=== PATIENT | female | born 1935 ===

== ENCOUNTER 2016-12-04 20:09 | Emergency (ER) | payer MEDICARE, MEDICAID ==
[2016-12-04 20:10] VITALS: BMI 23.4
--- NOTE | 2016-12-04 20:31 | C.PDOC ---
History Of Present Illness Patient presents to the ER with a complaint of redness to her scalp and ear swelling worsening since yesterday. Patient reports having her hair dyed yesterday. Patient is speaking in complete sentences and tolerating her own secretions. Denies fever, chills, nausea, or vomiting. Time Seen by Provider: 12/04/16 20:31 Chief Complaint (Nursing): Allergic Reaction History Per: Patient History/Exam Limitations: no limitations Onset/Duration Of Symptoms: Days (Since yesterday) Current Symptoms Are (Timing): Still Present Context: Other (Hair dye) Possible Cause: Other (Hair dye) Associated Symptoms: Swelling (Ears), Redness (Scalp) Home/EMS Treatment: None Severity: None Pain Scale Rating Of: 0 Recent travel outside of the [place]: No Past Medical History Reviewed: Historical Data, Nursing Documentation, Vital Signs Vital Signs: Last Vital Signs Temp 97.6 F 12/04/16 22:04 Pulse 60 12/04/16 22:04 Resp 16 12/04/16 22:04 BP 185/79 H 12/04/16 22:04 Pulse Ox 100 12/04/16 22:04 - Medical History PMH: Deep Vein Thrombosis, HTN - [facility] Procedures ANGIOPLASTY OF OTHER NON-CORONARY VESSEL(S) (03/24/13) INSEJ [id number] PERIPHERAL NON-CORONARY VES STENT(S) (03/24/13) INSERTION OF ONE VASCULAR STENT (03/24/13) PROCEDURE ON SINGLE VESSEL (03/24/13) Family History: States: No Known Family Hx - Social History Hx Tobacco Use: Yes Hx Alcohol Use: No Hx Substance Use: No - Immunization History Hx Tetanus Toxoid Vaccination: No Hx Influenza Vaccination: No Hx Pneumococcal Vaccination: No Review Of Systems Constitutional: Negative for: Fever, Chills ENT: Positive for: Other (Swelling to ears) Gastrointestinal: Negative for: Nausea, Vomiting Skin: Positive for: Other (Redness to scalp) Physical Exam - Physical Exam Appears: Well, Non-toxic Skin: Warm, Dry Head: Other (Erythemous scalp) Ear(s): Bilateral: Other (External swelling, redness) Oral Mucosa: Moist Chest: Symmetrical, No Tenderness Cardiovascular: Rhythm Regular, No Murmur Respiratory: Normal Breath Sounds, No Rales, No Rhonchi, No Wheezing Gastrointestinal/Abdominal: Soft, No Tenderness Neurological/Psych: Oriented x3 ED Course And Treatment O2 Sat by Pulse Oximetry: 98 (Room air) Pulse Ox Interpretation: Normal Progress Note: Benadryl, pepcid, solu-medrol, and IV fluids administered. Reevaluation Time: 22:44 Reassessment Condition: Improved Medical Decision Making Medical Decision Making: Upon provider reevaluation patient is feeling better, is medically stable, and requires no further treatment in the ED at this time. Patient will be discharged home with Rx for prednisone. Please also use benadryl ,pepcid and claritin . Counseling was provided and all questions were answered regarding diagnosis and need for follow up with Dr beard. There is agreement to discharge plan. Return if symptoms persist or worsen. Disposition Counseled Patient/Family Regarding: Studies Performed, Diagnosis, Need For Followup, Rx Given - Disposition Referrals: Hellen Rasheed MD [Medical Doctor] - Disposition: HOME/ ROUTINE Disposition Time: 20:31 Condition: FAIR Additional Instructions: Please return if symptoms recur. Please also use benadryl, pepcid and claritin Prescriptions: Prednisone [Deltasone] 20 mg PO DAILY #5 tablet Instructions: General Allergic Reaction (ED) Print Language: [place] - Clinical Impression Clinical Impression: Allergic reaction to chemical substance - Scribe Statement The provider has reviewed the documentation as recorded by the Scribotf Kang All medical record entries made by the Nasibotf were at my direction and personally dictated by me. I have reviewed the chart and agree that the record accurately reflects my personal performance of the history, physical exam, medical decision making, and the department course for this patient. I have also personally directed, reviewed, and agree with the discharge instructions and disposition.
[2016-12-04] MEDS ORDERED: DiphenhydrAMINE 50 mg/ml Inj IVP STA (20:37)
[2016-12-04] MEDS ORDERED: DiphenhydrAMINE 50 mg/ml Inj ONE (20:38)
[2016-12-04] MEDS ORDERED: Sodium Chloride 0.9% 1,000 ML IV ONE (20:38)
[2016-12-04] MEDS ORDERED: Sodium Chloride 0.9% 1,000 ML ONE (20:43)
[2016-12-04 22:05] VITALS: TEMP 97.6
[2016-12-04 22:47] VITALS: O2SAT 98
[2016-12-04 23:08] VITALS: BP 168/79; PULSE 79; RESP 18
== END 2016-12-04 23:08 | disposition home or self-care (01) ==
LOC: C.ER 20:09
DX: T78.49XA Other allergy, initial encounter (principal)
CPT/HCPCS: 96374; 96375; 99284; J1200; J2930; J7040

== ENCOUNTER 2017-11-10 13:21 | Emergency (ER) | payer MEDICARE, MEDICAID ==
[2017-11-10 13:21] VITALS: BMI 23.4
--- NOTE | 2017-11-10 16:21 | C.PDOC ---
History Of Present Illness 82 year old female presents to the ED c/o lower back pain. Patient reports she fell from a step stool and hit her back and head. Patient is currently c/o lower back pain, bruising and swelling to her left hand and wrist. Patient denies LOC, weakness, numbness, saddle anesthesia, urinary/bowel incontinence. Time Seen by Provider: 11/10/17 14:22 Chief Complaint (Nursing): Back Pain History Per: Patient History/Exam Limitations: no limitations Onset/Duration Of Symptoms: Hrs Current Symptoms Are (Timing): Still Present Quality Of Discomfort: "Pain" Previous Symptoms: None Associated Symptoms: None Recent travel outside of the [place]: No Additional History Per: Patient Past Medical History Reviewed: Historical Data, Nursing Documentation, Vital Signs Vital Signs: Last Vital Signs Temp 98.6 F 11/10/17 18:50 Pulse 65 11/10/17 18:50 Resp 18 11/10/17 18:50 BP 167/85 H 11/10/17 18:50 Pulse Ox 100 11/10/17 21:28 - Medical History PMH: Deep Vein Thrombosis, HTN Surgical History: No Surg Hx - [facility] Procedures ANGIOPLASTY OF OTHER NON-CORONARY VESSEL(S) (03/24/13) INSEJ [id number] PERIPHERAL NON-CORONARY VES STENT(S) (03/24/13) INSERTION OF ONE VASCULAR STENT (03/24/13) PROCEDURE ON SINGLE VESSEL (03/24/13) Family History: States: Unknown Family Hx - Social History Hx Tobacco Use: Yes Hx Alcohol Use: No Hx Substance Use: No - Immunization History Hx Tetanus Toxoid Vaccination: No Hx Influenza Vaccination: No Hx Pneumococcal Vaccination: No Review Of Systems Constitutional: Negative for: Fever, Chills Cardiovascular: Negative for: Chest Pain Respiratory: Negative for: Shortness of Breath Gastrointestinal: Negative for: Abdominal Pain Musculoskeletal: Positive for: Back Pain Skin: Negative for: Rash Neurological: Positive for: Headache. Negative for: Dizziness Physical Exam - Physical Exam Appears: Non-toxic, No Acute Distress Skin: Normal Color, Warm, Dry Head: Atraumatic, Normacephalic Eye(s): bilateral: Normal Inspection, PERRL, EOMI Nose: No Discharge Oral Mucosa: Moist Neck: Normal ROM, No Midline Cervical Tenderness, Supple Back: Other (lower back tenderness) Extremity: Normal ROM, No Tenderness, Capillary Refill (< 2 seconds), Swelling ( left hand and wrist), Other (bruising noted to left hand and wrist) Pulses: Left Radial: Normal, Right Radial: Normal Neurological/Psych: Oriented x3, Normal Motor, Normal Sensation Gait: Steady ED Course And Treatment O2 Sat by Pulse Oximetry: 100 (On RA) Pulse Ox Interpretation: Normal - Other Rad Left Hand X-Ray X-Ray: Read By Radiologist Interpretation: Accession No. : [id number]. Patient Name / ID : JIMMIE DESIR / [id number]. Exam Date : 11/10/2017 15:09:00 ( Approved ). Study Comment : Sex / Age : F / 82Y. Creator : Alex Stahl MD. Dictator : Alex Stahl MD. Able Bodied Watchman : Screedman/Laborer : Alex Stahl MD. Approver2 : Report Date : 11/10/2017 17:47:20. My Comment : . PROCEDURE: Left Hand Radiographs. HISTORY: fall from ladder. COMPARISON: None. FINDINGS: BONES: No acute fractures. JOINTS: Osteoarthritic changes, mild affecting interphalangeal joints and carpal 1st metacarpal joint. SOFT TISSUES : Normal. OTHER FINDINGS: None. IMPRESSION: No acute findings related to/ accounting for the clinical presentation. Left Wrist X-Ray X-Ray: Read By Radiologist Interpretation: Accession No. : [id number]. Patient Name / ID : JIMMIE DESIR / [id number]. Exam Date : 11/10/2017 15:09:13 ( Approved ). Study Comment : Sex / Age : F / 82Y. Creator : Alex Stahl MD. Dictator : Alex Stahl MD. Able Bodied Watchman : Screedman/Laborer : Alex Stahl MD. Approver2 : Report Date : 11/10/2017 17:47:55. My Comment : . PROCEDURE: Left Wrist Radiographs. . HISTORY: fall from ladder. COMPARISON: None. FINDINGS: BONES: Normal. No fracture. JOINTS: Osteoarthritic changes carpal 1st metacarpal joint. SOFT TISSUES: Soft tissue swelling adjacent to the distal ulna, ulnar styloid region. OTHER FINDINGS: None. IMPRESSION: Soft tissue swelling without acute articular or osseous abnormality. Hip X-Ray X-Ray: Read By Radiologist Interpretation: Accession No. : [id number]. Patient Name / ID : JIMMIE DESIR / [id number]. Exam Date : 11/10/2017 16:09:16 ( Approved ). Study Comment : Sex / Age : F / 82Y. Creator : Alex Stahl MD. Dictator : Alex Stahl MD. Able Bodied Watchman : Screedman/Laborer : Alex Stahl MD. Approver2 : Report Date : 11/10/2017 17:52:23. My Comment : . PROCEDURE: Radiographs of the pelvis and bilateral hips. HISTORY: fall from ladder. COMPARISON: None. FINDINGS: BONES: Pelvis: Unremarkable. Right hip: Unremarkable. Left hip:Unremarkable. JOINTS: Right hip: Moderate degenerative change. Left hip: Symmetrical degenerative change. Sacroiliac Joints: Unremarkable. Pubic symphysis: Unremarkable. SOFT TISSUES: Normal. OTHER FINDINGS: None. IMPRESSION: No acute findings related to/accounting for the clinical presentation. Additional benign and/or incidental findings described above. - CT Scan/US CT head Other Rad Studies (CT/US): Read By Radiologist, Radiology Report Reviewed CT/US Interpretation: Accession No. : [id number]. Patient Name / ID : JIMMIE DESIR / [id number]. Exam Date : 11/10/2017 15:16:32 ( Approved ). Study Comment : Sex / Age : F / 82Y. Creator : Kymberly Velez. Dictator : Odin Jack MD. Able Bodied Watchman : Screedman/Laborer : Odin Jack MD. Approver2 : Report Date : 11/10/2017 15:28:51. My Comment : . PROCEDURE: CT HEAD WITHOUT CONTRAST. HISTORY: fall from ladder. COMPARISON: None available. TECHNIQUE: Axial computed tomography images were obtained through the head/brain without intravenous contrast. Radiation dose: Total exam DLP = 731.28 mGy-cm. This CT exam was performed using one or more of the following dose reduction techniques: Automated exposure control, adjustment of the mA and/ or kV according to patient size, and/or use of iterative reconstruction technique. FINDINGS: HEMORRHAGE: No intracranial hemorrhage. BRAIN: No mass effect or edema. Mild atrophy is noted. Moderate white matter changes are noted suggestive but nonspecific for chronic microvascular ischemic disease. VENTRICLES: Unremarkable. No hydrocephalus. CALVARIUM: Unremarkable. PARANASAL SINUSES: Unremarkable as visualized. No significant inflammatory changes. MASTOID AIR CELLS: Unremarkable as visualized. No inflammatory changes. OTHER FINDINGS: None. IMPRESSION: No evidence of acute intracranial hemorrhage intracranial collection mass effect or midline shift. Mild volume loss and moderate white matter changes suggestive of chronic microvascular ischemic disease. LS SPine CT Other Rad Studies (CT/US): Read By Radiologist, Radiology Report Reviewed CT/US Interpretation: Accession No. : [id number]. Patient Name / ID : JIMMIE DESIR / [id number]. Exam Date : 11/10/2017 15:19:36 ( Approved ). Study Comment : Sex / Age : F / 82Y. Creator : Kymberly Velez. Dictator : Odin Jack MD. Able Bodied Watchman : Screedman/Laborer : Odin Jack MD. Approver2 : Report Date : 11/10/2017 15:28:56. My Comment : . PROCEDURE: CT Lumbar Spine without contrast. HISTORY: fall from ladder. COMPARISON: None. TECHNIQUE: Axial computed tomography images were obtained of the lumbar spine without the use of intravenous contrast. Coronal and sagittal reformatted images were created and reviewed. Radiation dose: Total exam DLP = 383.98 mGy- cm. This CT exam was performed using one or more of the following dose reduction techniques: Automated exposure control, adjustment of the mA and/or kV according to patient size, and/or use of iterative reconstruction technique. FINDINGS: VERTEBRAE: There is no evidence of acute fracture or subluxation. There is mild exaggeration of the normal lumbar lordosis. There is are bilateral L5 spondylolysis noted. DISCS/SPINAL CANAL/NEURAL FORAMINA: L1-2: Unremarkable. L2-3: Unremarkable. L3-4: At L3-L4 there is a small broad-based disc bulge associated with posterior ligament and facet joint hypertrophy which resulting in mild spinal and neural foraminal narrowing. L4-5 : There is a broad-based small disc bulge associated with posterior ligament and facet joint hypertrophy which resulting in mild spinal stenosis. L5-S1: Unremarkable. PARASPINAL SOFT TISSUES: Small foci of high attenuation noted at the left renal cortex may represent hemorrhagic cyst. OTHER FINDINGS: None. IMPRESSION: No CT evidence of acute fracture at the lumbar spine. No evidence of significant spondylolisthesis. Bilateral L5 spondylolysis. L3-L4 and L4-L5 broad-based disc bulge associated with posterior ligament and facet joint hypertrophy which resulting in spinal and neural foraminal narrowing. Progress Note: On re-evaluation patient feel better, ambulatory in ED. She is stable to be d/c home with PMD follow up. Family members at bedsite. Medical Decision Making Medical Decision Making: Impression: lower back pain s/p slipping and falling Plan: * CT head * CT LS spine * X Ray left hand and wrist * Hip X-Ray Disposition - Disposition Disposition: HOME/ ROUTINE Disposition Time: 17:53 Condition: STABLE Additional Instructions: Follow up with your PMD within 1-2 days. Return to ED if feel worse. Prescriptions: Lidocaine 5% [Lidoderm] 1 patch TP DAILY #30 patch Acetaminophen [Tylenol 325mg tab] 2 tab PO Q6 #50 tab Instructions: Preventing Falls in the Older Adult, Contusion (DC) Forms: Accompanied To ED By:, [employer] (Uzbek) Print Language: ALBANIAN - Clinical Impression Clinical Impression: Contusion of back, Minor head injury, Hand contusion, Fall from ladder - PA / [employer] / Resident Statement MD/DO has reviewed & agrees with the documentation as recorded. - Scribe Statement The provider has reviewed the documentation as recorded by the Scribe Christian Andersen All medical record entries made by the Scribe were at my direction and personally dictated by me. I have reviewed the chart and agree that the record accurately reflects my personal performance of the history, physical exam, medical decision making, and the department course for this patient. I have also personally directed, reviewed, and agree with the discharge instructions and disposition.
--- NOTE | 2017-11-10 16:57 | CT ---
PROCEDURE: CT Lumbar Spine without contrast HISTORY: fall from ladder COMPARISON: None. TECHNIQUE: Axial computed tomography images were obtained of the lumbar spine without the use of intravenous contrast. Coronal and sagittal reformatted images were created and reviewed. Radiation dose: Total exam DLP = 383.98 mGy-cm. This CT exam was performed using one or more of the following dose reduction techniques: Automated exposure control, adjustment of the mA and/or kV according to patient size, and/or use of iterative reconstruction technique. FINDINGS: VERTEBRAE: There is no evidence of acute fracture or subluxation. There is mild exaggeration of the normal lumbar lordosis. There is are bilateral L5 spondylolysis noted. DISCS/SPINAL CANAL/NEURAL FORAMINA: L1-2: Unremarkable. L2-3: Unremarkable. L3-4: At L3-L4 there is a small broad-based disc bulge associated with posterior ligament and facet joint hypertrophy which resulting in mild spinal and neural foraminal narrowing. L4-5: There is a broad-based small disc bulge associated with posterior ligament and facet joint hypertrophy which resulting in mild spinal stenosis. L5-S1: Unremarkable. PARASPINAL SOFT TISSUES: Small foci of high attenuation noted at the left renal cortex may represent hemorrhagic cyst. OTHER FINDINGS: None. IMPRESSION: No CT evidence of acute fracture at the lumbar spine. No evidence of significant spondylolisthesis. Bilateral L5 spondylolysis. L3-L4 and L4-L5 broad-based disc bulge associated with posterior ligament and facet joint hypertrophy which resulting in spinal and neural foraminal narrowing.
--- NOTE | 2017-11-10 17:48 | RAD ---
PROCEDURE: Left Hand Radiographs. HISTORY: fall from ladder COMPARISON: None. FINDINGS: BONES: No acute fractures. JOINTS: Osteoarthritic changes, mild affecting interphalangeal joints and carpal 1st metacarpal joint. SOFT TISSUES: Normal. OTHER FINDINGS: None. IMPRESSION: No acute findings related to/accounting for the clinical presentation.
--- NOTE | 2017-11-10 17:49 | RAD ---
PROCEDURE: Left Wrist Radiographs. HISTORY: fall from ladder COMPARISON: None. FINDINGS: BONES: Normal. No fracture. JOINTS: Osteoarthritic changes carpal 1st metacarpal joint. SOFT TISSUES: Soft tissue swelling adjacent to the distal ulna, ulnar styloid region. OTHER FINDINGS: None. IMPRESSION: Soft tissue swelling without acute articular or osseous abnormality.
--- NOTE | 2017-11-10 17:53 | RAD ---
PROCEDURE: Radiographs of the pelvis and bilateral hips HISTORY: fall from ladder COMPARISON: None. FINDINGS: BONES: Pelvis: Unremarkable. Right hip:Unremarkable. Left hip:Unremarkable. JOINTS: Right hip: Moderate degenerative change. Left hip: Symmetrical degenerative change. Sacroiliac Joints: Unremarkable. Pubic symphysis: Unremarkable. SOFT TISSUES: Normal. OTHER FINDINGS: None. IMPRESSION: No acute findings related to/accounting for the clinical presentation. Additional benign and/or incidental findings described above.
[2017-11-10 18:51] VITALS: BP 167/85; PULSE 65; RESP 18; TEMP 98.6; O2SAT 100
== END 2017-11-10 18:51 | disposition home or self-care (01) ==
LOC: C.ER 13:21
DX: S30.0XXA Contusion of lower back and pelvis, initial encounter (principal); S60.222A Contusion of left hand, initial encounter; S09.90XA Unspecified injury of head, initial encounter; W11.XXXA Fall on and from ladder, initial encounter; Y92.009 Unspecified place in unspecified non-institutional (private) residence as the place of occurrence of the external cause